=== PATIENT | male | born 1950 | race Two or more races ===

== ENCOUNTER → 2024-04-01 | Outpatient (CLI) | payer MEDICARE, BC, SELFPAY ==
[2024-04-01 16:22] LABS: Anion Gap 4 (7-16); BUN/Creatinine Ratio 14 Ratio (12-20); Blood Urea Nitrogen 15 mg/dL (9-23); Carbon Dioxide 26.5 mMol/L (20.0-31.0); Chloride 106 mMol/L (98-107); Creatinine (Component) 1.1 mg/dL (0.6-1.3); Glucose 95 mg/dL (74-106); Osmolality,Calculated 272 (275-295); Potassium 4.5 mMol/L (3.4-5.1); Sodium 136 mMol/L (136-145); eGFR > 60 See Note
[2024-04-01 16:23] LABS: Albumin, Serum 4.3 gm/dL (3.4-4.8); Calcium 9.6 mg/dL (8.3-10.6); Calcium (Corrected) 9.6 mg/dL (8.5-10.1); Phosphorous 3.9 mg/dL (2.4-5.1)
[2024-04-01 16:25] LABS: Vitamin D 25 Hydroxy Total 32.2 ng/mL (7.3-40.2)
[2024-04-01 16:45] LABS: Creatinine,Random Urine 164 mg/dL (30-125); Protein Total, Random Urine 202 mg/dL (1-14)
== END | disposition home or self-care (01) ==
LOC: COPL 15:01
PROVIDERS: PCP Family Medicine; Referring Provider Internal Medicine; Visit Provider Internal Medicine
DX: N18.1 Chronic kidney disease, stage 1 (principal); R94.5 Abnormal results of liver function studies; R80.9 Proteinuria, unspecified
CPT/HCPCS: 36415; 80069; 82306; 82570; 84156

== ENCOUNTER → 2024-04-25 | Outpatient (CLI) | payer MEDICARE, BC, SELFPAY ==
[2024-04-25 08:03] LABS: Collection Type, Urine Clean Catch
[2024-04-25 08:29] LABS: Basophils # (Auto) 0.1 Thou/mm3 (0.0-0.2); Basophils % (Auto) 1 % (0-2.5); Eosinophils # (Auto) 0.5 Thou/mm3 (0.0-0.5); Eosinophils % (Auto) 5 % (0-10); Hematocrit 47.9 % (41.0-53.0); Hemoglobin 16.2 g/dL (13.5-16.0); Immature Granulocytes % (Auto) 0 % (0-0); Immature Granulocytes Auto 0.02 Thou/mm3 (0.00-0.00); Lymphocytes # (Auto) 3.5 Thou/mm3 (1.0-4.8); Lymphocytes % (Auto) 35 % (10-50); Mean Corpuscular HGB Conc 33.8 g/dl (31.0-37.0); Mean Corpuscular Hemoglobin 32.7 pg (25.0-35.0); Mean Corpuscular Volume 97 fL (80-100); Monocytes # (Auto) 0.7 Thou/mm3 (0.0-0.8); Monocytes % (Auto) 7 % (0-12); Neutrophils # (Auto) 5.3 Thou/mm3 (1.8-7.7); Neutrophils % (Auto) 53 % (37-80); Nucleated Red Blood Cell % 0 /100 WBC (0); Platelet Count 280 Thou/mm3 (140-440); Red Blood Count 4.96 Miln/mm3 (4.50-5.90)
[2024-04-25 08:33] LABS: Bilirubin,Urine Negative (Negative); Blood,Urine Trace (Negative); Clarity,Urine Clear (Clear/Hazy); Color,Urine Lt-Yellow (Lt Yel-Yel); Culture Indicated,Urine Not Indicated; Glucose, Urine Negative (Negative); Ketones,Urine Negative (Negative); Leukocyte Esterase,Urine Negative (Negative); Nitrite,Urine Negative (Negative); Protein,Urine 2+ (Neg - Trace); RBC,Urine 5 /hpf (0-3); Specific Gravity,Urine 1.024 (1.001-1.035); Squamous Epithelial Cell,Urine 1 /hpf (0-5); Urobilinogen,Urine Negative mg/dL (0.0-1.0); WBC,Urine 2 /hpf (0-5)
[2024-04-25 08:44] LABS: Prostate Specific Antigen 0.11 ng/mL (0-4.00)
[2024-04-25 08:45] LABS: Alanine Aminotransferase 47 U/L (10-49); Albumin, Serum 4.3 gm/dL (3.4-4.8); Albumin/Globulin Ratio 1.1 (1.2-2.2); Alkaline Phosphatase 108 U/L (46-116); Anion Gap 8 (7-16); Aspartate Amino Transferase 55 U/L (0-34); BUN/Creatinine Ratio 14 Ratio (12-20); Bilirubin,Total 0.4 mg/dL (0.3-1.2); Blood Urea Nitrogen 11 mg/dL (9-23); Calcium 9.6 mg/dL (8.3-10.6); Calcium (Corrected) 9.6 mg/dL (8.5-10.1); Carbon Dioxide 25.1 mMol/L (20.0-31.0); Cardiac Risk Estimate 3.3 RATIO (4.0-6.7); Chloride 103 mMol/L (98-107); Cholesterol 103 mg/dL (132-200); Creatinine (Component) 0.8 mg/dL (0.6-1.3); Globulin 3.9 gm/dL (2.3-3.5); Glucose 92 mg/dL (74-106); HDL Cholesterol 31 mg/dL (40-60); LDL Cholesterol,Calculated 29 mg/dL (0-130); Osmolality,Calculated 271 (275-295); Potassium 3.9 mMol/L (3.4-5.1); Sodium 136 mMol/L (136-145); Total Protein 8.2 gm/dL (5.7-8.2); Triglycerides 214 mg/dL (30-150); eGFR > 60 See Note
[2024-04-25 08:58] LABS: Glucose Estimated Average 120 mg/dL (80-131); Hemoglobin A1C 5.8 % Hgb (4.8-6.0)
[2024-04-25 09:20] LABS: Hepatitis A Antibody IgM Non Reactive (Non React); Hepatitis B Core Antibody IgM Non Reactive (Non React); Hepatitis B Surface Antigen Non Reactive (Non React); Hepatitis C Antibody Reactive (Non React)
== END | disposition home or self-care (01) ==
LOC: COPL 07:27
PROVIDERS: PCP Nurse Practitioner Family; Referring Provider Nurse Practitioner Family; Visit Provider Nurse Practitioner Family
DX: I10 Essential (primary) hypertension (principal); E78.5 Hyperlipidemia, unspecified; Z13.1 Encounter for screening for diabetes mellitus; Z11.59 Encounter for screening for other viral diseases; Z13.9 Encounter for screening, unspecified
CPT/HCPCS: 36415; 80053; 80061; 80074; 81001; 83036; 84153; 85025

== ENCOUNTER → 2024-05-05 | Outpatient (CLI) | payer MEDICARE, BC, SELFPAY ==
[2024-05-05 13:51] LABS: Albumin, Serum 4.2 gm/dL (3.4-4.8); Anion Gap 5 (7-16); BUN/Creatinine Ratio 16 Ratio (12-20); Blood Urea Nitrogen 14 mg/dL (9-23); Calcium 9.8 mg/dL (8.3-10.6); Calcium (Corrected) 9.8 mg/dL (8.5-10.1); Carbon Dioxide 27.1 mMol/L (20.0-31.0); Chloride 104 mMol/L (98-107); Creatinine (Component) 0.9 mg/dL (0.6-1.3); Glucose 96 mg/dL (74-106); Osmolality,Calculated 272 (275-295); Phosphorous 3.5 mg/dL (2.4-5.1); Potassium 4.3 mMol/L (3.4-5.1); Sodium 136 mMol/L (136-145); eGFR > 60 See Note
== END | disposition home or self-care (01) ==
PROVIDERS: PCP Family Medicine; Referring Provider Internal Medicine; Visit Provider Internal Medicine
DX: N18.1 Chronic kidney disease, stage 1 (principal); R94.5 Abnormal results of liver function studies; R80.9 Proteinuria, unspecified
CPT/HCPCS: 36415; 80069

== ENCOUNTER → 2024-06-07 | Outpatient (CLI) | payer MEDICARE, BC, SELFPAY ==
--- NOTE | 2024-06-07 10:00 | XR_ITS ---
Examination: Arterial duplex lower extremity study. Date and time of exam: June 07, 2024 1006 hours INDICATIONS: Bilateral foot swelling and numbness beginning one year ago Findings: Duplex sonographic imaging of the lower extremity arteries using B-mode/Lewis scale imaging and Doppler spectral analysis and color flow. Ankle brachial indices have been recorded. Right common femoral artery demonstrates triphasic flow. Right superficial femoral artery demonstrates triphasic flow. Right popliteal artery demonstrates triphasic flow. Right posterior tibial artery demonstrated triphasic flow. Right ankle/brachial index is 1.2. Left common femoral artery demonstrates triphasic flow. Left superficial femoral artery demonstrates triphasic flow. Left popliteal artery demonstrates triphasic flow. Left posterior tibial artery demonstrated triphasic flow. Left ankle/brachial index is 1.1. Impression: Negative study
== END | disposition home or self-care (01) ==
PROVIDERS: PCP Nurse Practitioner Family; Referring Provider Nurse Practitioner Family; Visit Provider Nurse Practitioner Family
DX: R20.0 Anesthesia of skin (principal)
CPT/HCPCS: 93925

== ENCOUNTER → 2024-06-16 | Outpatient (CLI) | payer MEDICARE, BC, SELFPAY ==
[2024-06-16 13:07] LABS: Basophils # (Auto) 0.1 Thou/mm3 (0.0-0.2); Basophils % (Auto) 1 % (0-2.5); Eosinophils # (Auto) 0.2 Thou/mm3 (0.0-0.5); Eosinophils % (Auto) 2 % (0-10); Hemoglobin 15.9 g/dL (13.5-16.0); Immature Granulocytes % (Auto) 0 % (0-0); Immature Granulocytes Auto 0.01 Thou/mm3 (0.00-0.00); Lymphocytes # (Auto) 2.6 Thou/mm3 (1.0-4.8); Lymphocytes % (Auto) 32 % (10-50); Mean Corpuscular HGB Conc 33.8 g/dl (31.0-37.0); Mean Corpuscular Hemoglobin 32.9 pg (25.0-35.0); Mean Corpuscular Volume 97 fL (80-100); Monocytes # (Auto) 0.5 Thou/mm3 (0.0-0.8); Monocytes % (Auto) 6 % (0-12); Neutrophils # (Auto) 4.9 Thou/mm3 (1.8-7.7); Neutrophils % (Auto) 60 % (37-80); Nucleated Red Blood Cell % 0 /100 WBC (0); Platelet Count 284 Thou/mm3 (140-440); RDW Standard Deviation 47.8 fL (35.1-43.9); Red Blood Count 4.83 Miln/mm3 (4.50-5.90); White Blood Count 8.2 Thou/mm3 (3.8-10.6)
[2024-06-16 13:27] LABS: Alanine Aminotransferase 44 U/L (10-49); Albumin, Serum 4.3 gm/dL (3.4-4.8); Albumin/Globulin Ratio 1.1 (1.2-2.2); Alkaline Phosphatase 99 U/L (46-116); Anion Gap 7 (7-16); Aspartate Amino Transferase 48 U/L (0-34); BUN/Creatinine Ratio 11 Ratio (12-20); Bilirubin,Total 0.6 mg/dL (0.3-1.2); Blood Urea Nitrogen 10 mg/dL (9-23); Calcium 9.8 mg/dL (8.3-10.6); Calcium (Corrected) 9.8 mg/dL (8.5-10.1); Chloride 104 mMol/L (98-107); Creatinine (Component) 0.9 mg/dL (0.6-1.3); Glucose 96 mg/dL (74-106); Osmolality,Calculated 274 (275-295); Potassium 4.4 mMol/L (3.4-5.1); Sodium 138 mMol/L (136-145); Total Protein 8.3 gm/dL (5.7-8.2); eGFR > 60 See Note
[2024-06-19 23:33] LABS: HCV RNA, PCR <15 NOT DETECTED IU/mL
[2024-06-20 07:03] LABS: HCV RNA, PCR Log IU <1.18 NOT DETECTED Log IU/mL
== END | disposition home or self-care (01) ==
LOC: COPL 12:24
PROVIDERS: PCP Family Medicine; Referring Provider Specialist; Visit Provider Specialist
DX: K76.0 Fatty (change of) liver, not elsewhere classified (principal); K71.51 Toxic liver disease with chronic active hepatitis with ascites; B17.10 Acute hepatitis C without hepatic coma
CPT/HCPCS: 36415; 80053; 82105; 85025; 87522

== ENCOUNTER → 2024-08-08 | Outpatient (CLI) | payer MEDICARE, BC, SELFPAY ==
[2024-08-08 11:31] LABS: Basophils # (Auto) 0.1 Thou/mm3 (0.0-0.2); Basophils % (Auto) 1 % (0-2.5); Eosinophils # (Auto) 0.2 Thou/mm3 (0.0-0.5); Eosinophils % (Auto) 2 % (0-10); Hematocrit 49.1 % (41.0-53.0); Hemoglobin 16.5 g/dL (13.5-16.0); Immature Granulocytes % (Auto) 0 % (0-0); Immature Granulocytes Auto 0.02 Thou/mm3 (0.00-0.00); Lymphocytes # (Auto) 3.8 Thou/mm3 (1.0-4.8); Lymphocytes % (Auto) 36 % (10-50); Mean Corpuscular HGB Conc 33.6 g/dl (31.0-37.0); Mean Corpuscular Hemoglobin 32.7 pg (25.0-35.0); Mean Corpuscular Volume 97 fL (80-100); Monocytes # (Auto) 0.7 Thou/mm3 (0.0-0.8); Monocytes % (Auto) 6 % (0-12); Neutrophils # (Auto) 5.9 Thou/mm3 (1.8-7.7); Neutrophils % (Auto) 55 % (37-80); Nucleated Red Blood Cell % 0 /100 WBC (0); Platelet Count 266 Thou/mm3 (140-440); RDW Standard Deviation 46.8 fL (35.1-43.9); Red Blood Count 5.04 Miln/mm3 (4.50-5.90); White Blood Count 10.6 Thou/mm3 (3.8-10.6)
[2024-08-08 11:52] LABS: Creatinine,Random Urine 164 mg/dL (30-125); Protein Total, Random Urine 309 mg/dL (1-14)
[2024-08-08 12:04] LABS: Albumin, Serum 4.2 gm/dL (3.4-4.8); Anion Gap 5 (7-16); BUN/Creatinine Ratio 14 Ratio (12-20); Blood Urea Nitrogen 14 mg/dL (9-23); Calcium 9.3 mg/dL (8.3-10.6); Calcium (Corrected) 9.3 mg/dL (8.5-10.1); Carbon Dioxide 25.9 mMol/L (20.0-31.0); Chloride 106 mMol/L (98-107); Glucose 98 mg/dL (74-106); Osmolality,Calculated 274 (275-295); Phosphorous 3.6 mg/dL (2.4-5.1); Potassium 4.2 mMol/L (3.4-5.1); Sodium 137 mMol/L (136-145); eGFR > 60 See Note
== END | disposition home or self-care (01) ==
PROVIDERS: PCP Family Medicine; Referring Provider Internal Medicine; Visit Provider Internal Medicine
DX: N18.1 Chronic kidney disease, stage 1 (principal); R80.9 Proteinuria, unspecified; R94.5 Abnormal results of liver function studies
CPT/HCPCS: 36415; 80069; 82570; 84156; 85025

== ENCOUNTER → 2024-11-23 | Outpatient (CLI) | payer MEDICARE, BC, SELFPAY ==
[2024-11-23 09:44] LABS: Albumin, Serum 4.2 gm/dL (3.4-4.8); Anion Gap 9 (7-16); BUN/Creatinine Ratio 11 Ratio (12-20); Blood Urea Nitrogen 9 mg/dL (9-23); Calcium 9.1 mg/dL (8.3-10.6); Calcium (Corrected) 9.1 mg/dL (8.5-10.1); Carbon Dioxide 25.6 mMol/L (20.0-31.0); Chloride 106 mMol/L (98-107); Creatinine (Component) 0.8 mg/dL (0.6-1.3); Glucose 93 mg/dL (74-106); Osmolality,Calculated 279 (275-295); Phosphorous 3.4 mg/dL (2.4-5.1); Potassium 3.8 mMol/L (3.4-5.1); Sodium 141 mMol/L (136-145); Vitamin D 25 Hydroxy Total 52.1 ng/mL (7.3-40.2); eGFR > 60 See Note
[2024-11-23 10:47] LABS: Creatinine,Random Urine 167 mg/dL (30-125); Protein Total, Random Urine 172 mg/dL (1-14)
== END | disposition home or self-care (01) ==
LOC: COPL 08:44
PROVIDERS: PCP Family Medicine; Referring Provider Internal Medicine; Visit Provider Internal Medicine
DX: N18.1 Chronic kidney disease, stage 1 (principal); R94.5 Abnormal results of liver function studies; R80.9 Proteinuria, unspecified
CPT/HCPCS: 36415; 80069; 82306; 82570; 84156

== ENCOUNTER → 2024-12-08 | Outpatient (CLI) | payer MEDICARE, BC, SELFPAY ==
--- NOTE | 2024-12-08 12:00 | XR_ITS ---
Examination: Abdomen sonogram, Limited Date and time of exam: December 08, 2024 1145 hours INDICATIONS: Hepatitis diagnosis 50 years ago Technique: Real-time marie scale transabdominal sonographic images of the upper abdomen obtained. Findings: Normal gallbladder. Normal common bile duct 0.2 cm Pancreatic head 2.5 cm Liver 14.7 cm fatty infiltration irregular contour Normal hepatopedal portal venous oh Patent IVC IMPRESSION: Normal gallbladder Fatty infiltration throughout the liver, irregular contour, no focal liver lesions
[2024-12-08 12:39] LABS: Basophils # (Auto) 0.1 Thou/mm3 (0.0-0.2); Basophils % (Auto) 1 % (0-2.5); Eosinophils # (Auto) 0.2 Thou/mm3 (0.0-0.5); Eosinophils % (Auto) 2 % (0-10); Hematocrit 46.2 % (41.0-53.0); Hemoglobin 15.9 g/dL (13.5-16.0); Immature Granulocytes Auto 0.02 Thou/mm3 (0.00-0.00); Lymphocytes # (Auto) 3.1 Thou/mm3 (1.0-4.8); Lymphocytes % (Auto) 31 % (10-50); Mean Corpuscular HGB Conc 34.4 g/dl (31.0-37.0); Mean Corpuscular Hemoglobin 33.0 pg (25.0-35.0); Mean Corpuscular Volume 96 fL (80-100); Monocytes # (Auto) 0.5 Thou/mm3 (0.0-0.8); Monocytes % (Auto) 5 % (0-12); Neutrophils # (Auto) 6.2 Thou/mm3 (1.8-7.7); Neutrophils % (Auto) 62 % (37-80); Nucleated Red Blood Cell # 0.00 Thou/mm3 (0.00-0.00); Nucleated Red Blood Cell % 0 /100 WBC (0); Platelet Count 262 Thou/mm3 (140-440); RDW Standard Deviation 46.6 fL (35.1-43.9); Red Blood Count 4.82 Miln/mm3 (4.50-5.90); White Blood Count 10.0 Thou/mm3 (3.8-10.6)
[2024-12-08 12:52] LABS: AFP Non-Pregnant 1.90 ng/mL (<8.10)
[2024-12-08 12:55] LABS: Alanine Aminotransferase 49 U/L (10-49); Albumin, Serum 4.3 gm/dL (3.4-4.8); Albumin/Globulin Ratio 1.2 (1.2-2.2); Alkaline Phosphatase 98 U/L (46-116); Anion Gap 9 (7-16); Aspartate Amino Transferase 43 U/L (0-34); BUN/Creatinine Ratio 9 Ratio (12-20); Bilirubin,Total 0.6 mg/dL (0.3-1.2); Blood Urea Nitrogen 9 mg/dL (9-23); Calcium 9.1 mg/dL (8.3-10.6); Calcium (Corrected) 9.1 mg/dL (8.5-10.1); Carbon Dioxide 27.9 mMol/L (20.0-31.0); Chloride 105 mMol/L (98-107); Creatinine (Component) 1.0 mg/dL (0.6-1.3); Globulin 3.5 gm/dL (2.3-3.5); Glucose 89 mg/dL (74-106); Osmolality,Calculated 280 (275-295); Potassium 4.0 mMol/L (3.4-5.1); Sodium 142 mMol/L (136-145); Total Protein 7.8 gm/dL (5.7-8.2); eGFR > 60 See Note
[2024-12-11 11:22] LABS: HCV RNA, PCR <15 NOT DETECTED IU/mL
[2024-12-12 09:42] LABS: HCV RNA, PCR Log IU <1.18 NOT DETECTED Log IU/mL
== END | disposition home or self-care (01) ==
LOC: CDIM 11:34 → COPL 12:03
PROVIDERS: PCP Family Medicine; Referring Provider Specialist; Visit Provider Radiology Diagnostic Radiology
DX: K76.0 Fatty (change of) liver, not elsewhere classified (principal); B17.10 Acute hepatitis C without hepatic coma; K71.51 Toxic liver disease with chronic active hepatitis with ascites
CPT/HCPCS: 36415; 76705; 80053; 82105; 85025; 87522

== ENCOUNTER → 2025-04-20 | Outpatient (CLI) | payer MEDICARE, BC, SELFPAY ==
[2025-04-20 12:18] LABS: Basophils # (Auto) 0.1 Thou/mm3 (0.0-0.2); Basophils % (Auto) 1 % (0-2.5); Eosinophils # (Auto) 0.2 Thou/mm3 (0.0-0.5); Eosinophils % (Auto) 2 % (0-10); Hematocrit 47.5 % (41.0-53.0); Hemoglobin 15.8 g/dL (13.5-16.0); Immature Granulocytes Auto 0.02 Thou/mm3 (0.00-0.00); Lymphocytes # (Auto) 2.6 Thou/mm3 (1.0-4.8); Lymphocytes % (Auto) 26 % (10-50); Mean Corpuscular HGB Conc 33.3 g/dl (31.0-37.0); Mean Corpuscular Hemoglobin 32.5 pg (25.0-35.0); Mean Corpuscular Volume 98 fL (80-100); Monocytes # (Auto) 0.7 Thou/mm3 (0.0-0.8); Monocytes % (Auto) 6 % (0-12); Neutrophils # (Auto) 6.7 Thou/mm3 (1.8-7.7); Neutrophils % (Auto) 65 % (37-80); Nucleated Red Blood Cell # 0.00 Thou/mm3 (0.00-0.00); Nucleated Red Blood Cell % 0 /100 WBC (0); Platelet Count 283 Thou/mm3 (140-440); RDW Standard Deviation 47.8 fL (35.1-43.9); Red Blood Count 4.86 Miln/mm3 (4.50-5.90); White Blood Count 10.3 Thou/mm3 (3.8-10.6)
[2025-04-20 12:31] LABS: Glucose Estimated Average 117 mg/dL (80-131); Hemoglobin A1C 5.7 % Hgb (4.8-6.0)
[2025-04-20 12:47] LABS: Alanine Aminotransferase 71 U/L (10-49); Albumin, Serum 4.7 gm/dL (3.4-4.8); Albumin/Globulin Ratio 1.5 (1.2-2.2); Alkaline Phosphatase 122 U/L (46-116); Anion Gap 10 (7-16); Aspartate Amino Transferase 58 U/L (0-34); BUN/Creatinine Ratio 9 Ratio (12-20); Bilirubin,Total 0.5 mg/dL (0.3-1.2); Blood Urea Nitrogen 8 mg/dL (9-23); Calcium 9.5 mg/dL (8.3-10.6); Calcium (Corrected) 9.5 mg/dL (8.5-10.1); Carbon Dioxide 23.6 mMol/L (20.0-31.0); Cardiac Risk Estimate 3.1 RATIO (4.0-6.7); Chloride 106 mMol/L (98-107); Cholesterol 97 mg/dL (132-200); Creatinine (Component) 0.9 mg/dL (0.6-1.3); Free T4 (Free Thyroxine) 1.11 ng/dL (0.89-1.76); Globulin 3.2 gm/dL (2.3-3.5); Glucose 97 mg/dL (74-106); HDL Cholesterol 31 mg/dL (40-60); LDL Cholesterol,Calculated 34 mg/dL (0-130); Osmolality,Calculated 277 (275-295); Potassium 4.2 mMol/L (3.4-5.1); Sodium 140 mMol/L (136-145); Thyroid Stimulating Hormone 2.48 uIU/mL (0.55-4.78); Total Protein 7.9 gm/dL (5.7-8.2); Triglycerides 161 mg/dL (30-150); eGFR > 60 See Note
[2025-04-20 13:35] LABS: Hepatitis A Antibody IgM Non Reactive (Non React); Hepatitis B Core Antibody IgM Non Reactive (Non React); Hepatitis B Surface Antigen Non Reactive (Non React); Hepatitis C Antibody Reactive (Non React); Vitamin D 25 Hydroxy Total 36.1 ng/mL (7.3-40.2)
[2025-04-26 07:06] LABS: PSA, Free <0.10 ng/mL; PSA, Total <0.1 ng/mL (< OR = 4.0)
[2025-05-01 06:59] LABS: Direct LDL* 34 mg/dL (<100)
== END | disposition home or self-care (01) ==
LOC: COPL 10:52
PROVIDERS: PCP Family Medicine; Referring Provider Nurse Practitioner Family; Visit Provider Nurse Practitioner Family
DX: I10 Essential (primary) hypertension (principal); N40.0 Benign prostatic hyperplasia without lower urinary tract symptoms; R73.03 Prediabetes; Z13.29 Encounter for screening for other suspected endocrine disorder; E55.9 Vitamin D deficiency, unspecified; Z13.220 Encounter for screening for lipoid disorders; B19.20 Unspecified viral hepatitis C without hepatic coma
CPT/HCPCS: 36415; 80053; 80061; 80074; 82306; 83036; 83721; 84153; 84154; 84439; 84443; 85025

== ENCOUNTER → 2025-05-31 | Outpatient (CLI) | payer MEDICARE, BC, SELFPAY ==
[2025-05-31 15:46] LABS: Basophils # (Auto) 0.1 Thou/mm3 (0.0-0.2); Basophils % (Auto) 1 % (0-2.5); Eosinophils # (Auto) 0.3 Thou/mm3 (0.0-0.5); Eosinophils % (Auto) 2 % (0-10); Hematocrit 47.8 % (41.0-53.0); Hemoglobin 16.0 g/dL (13.5-16.0); Immature Granulocytes Auto 0.03 Thou/mm3 (0.00-0.00); Lymphocytes # (Auto) 2.9 Thou/mm3 (1.0-4.8); Lymphocytes % (Auto) 27 % (10-50); Mean Corpuscular HGB Conc 33.5 g/dl (31.0-37.0); Mean Corpuscular Hemoglobin 33.2 pg (25.0-35.0); Mean Corpuscular Volume 99 fL (80-100); Monocytes # (Auto) 1.0 Thou/mm3 (0.0-0.8); Monocytes % (Auto) 9 % (0-12); Neutrophils # (Auto) 6.6 Thou/mm3 (1.8-7.7); Neutrophils % (Auto) 61 % (37-80); Nucleated Red Blood Cell # 0.00 Thou/mm3 (0.00-0.00); Nucleated Red Blood Cell % 0 /100 WBC (0); Platelet Count 304 Thou/mm3 (140-440); RDW Standard Deviation 48.1 fL (35.1-43.9); Red Blood Count 4.82 Miln/mm3 (4.50-5.90); White Blood Count 10.9 Thou/mm3 (3.8-10.6)
[2025-05-31 16:00] LABS: Albumin, Serum 4.3 gm/dL (3.4-4.8); Anion Gap 7 (7-16); BUN/Creatinine Ratio 14 Ratio (12-20); Blood Urea Nitrogen 13 mg/dL (9-23); Calcium 9.3 mg/dL (8.3-10.6); Calcium (Corrected) 9.3 mg/dL (8.5-10.1); Carbon Dioxide 28.1 mMol/L (20.0-31.0); Chloride 106 mMol/L (98-107); Creatinine (Component) 0.9 mg/dL (0.6-1.3); Glucose 109 mg/dL (74-106); Osmolality,Calculated 282 (275-295); Phosphorous 3.7 mg/dL (2.4-5.1); Potassium 4.1 mMol/L (3.4-5.1); Sodium 141 mMol/L (136-145); eGFR > 60 See Note
[2025-05-31 16:01] LABS: Creatinine,Random Urine 149 mg/dL (30-125); Protein Total, Random Urine 174 mg/dL (1-14)
[2025-05-31 16:03] LABS: Vitamin D 25 Hydroxy Total 35.4 ng/mL (7.3-40.2)
== END | disposition home or self-care (01) ==
LOC: COPL 13:53
PROVIDERS: PCP Family Medicine; Referring Provider Internal Medicine; Visit Provider Internal Medicine
DX: N18.1 Chronic kidney disease, stage 1 (principal); R94.5 Abnormal results of liver function studies; R80.9 Proteinuria, unspecified
CPT/HCPCS: 36415; 80069; 82306; 82570; 84156; 85025